=== PATIENT | male | born 1955 | race Hispanic/Latino ===

== ENCOUNTER → 2018-08-29 | Outpatient (CLI) | payer BC | END | disposition home or self-care (01) | LOC: RAH 10:00 | PROVIDERS: ATTEND Internal Medicine Pulmonary Disease | DX: I37.1 Nonrheumatic pulmonary valve insufficiency (principal); I31.3 Pericardial effusion (noninflammatory); I51.7 Cardiomegaly | CPT/HCPCS: 93306 ==

== ENCOUNTER → 2024-07-11 | Outpatient (CLI) | payer MEDICARE ==
[~2024-07-11] MED LIST: PERFLUTREN PROTEIN-A MICROSPHR 0.22 MG/ML VIAL IV ONE
--- NOTE | 2024-07-12 00:01 | HMCSR ---
APPROVED REPORT EXAM: Two-dimensional and M-mode echocardiogram with contrast , Doppler and color Doppler INDICATION ICD: I27.20, I27.81, I10, R06.02, J96.12 Contrast Details Indication: Endocardial border delineation Agent/Amount Used: Optison 1mL 2D Dimensions RVDd4.9 cmLVEF(%)60.3 (>50%)LVEF(%, simp.)61 % IVSd1.2 (0.7-1.1cm)FS(%)32 %LA ESV INDEX (BP)35.44 mL/m2 LVDd4.9 (3.8-5.6cm)LA (2D)5.9 (1.6-4.0cm) PWd1.3 (0.7-1.1cm)Ao Root(2D)3.8 (2.0-3.7cm) IVSs1.7 cmLVOT diam2.5 (1.8-2.4cm) LVDs3.3 (2.5-4.0cm) PWs1.5 cm Deformation Strain Apical 4-23.0 % Apical 2-17.0 % Apical 3-19.0 % Global Strain-20.0 % M-Mode Dimensions EPSS1.2 cm LA (MM)5.4 (1.6-4.0cm) Ao Root(MM)3.6 (2.0-3.7cm) Aortic Valve AoV Vmax1.4 m/Peggy Peak GR7.8 mmHgLVOT Vmax1.3 m/s AoV VTI0.2 mAo Mean GR3.3 mmHgLVOT VTI0.24 m PITA (VMAX)5.5 cm2AVA (VTI) 5.5 cm2 Mitral Valve MV E Vmax69.1 cm/sDECEL Qkth568 ms MV A Vmax71.0 cm/sP 1/2 T63 ms E/A ratio1.0MVA (PHT)3.5 cm2 TDI E/E' Medial8.6E/E' Lateral6.9 Medial E' Peak V8.00 cm/sLateral E' Peak V10.00 cm/s Pulmonary Valve PV Vmax1.0 m/s Tricuspid Valve TR Vmax2.4 m/sRAP (EST) 8 nkOxFNLU49.6 mmHg TR Peak GR23.6 mmHg Left Ventricle The left ventricle is normal size. No regional wall motion abnormalities noted. Moderate concentric l eft ventricular hypertrophy. Left ventricular systolic function is normal, estimated LVEF is 60 to 65 %. Stage I diastolic dysfunction. Right Ventricle The right ventricle is dilated. The right ventricular systolic function is normal. Atria The left atrium is mildly dilated, 38 mL/m. The right atrium is dilated. Aortic Valve Aortic valve is trileaflet. Trace aortic regurgitation. There is no aortic valvular stenosis. Mitral Valve The mitral valve is normal in structure. The leaflets are mildly thickened Trace mitral regurgitation . There is no mitral valve stenosis. Tricuspid Valve The tricuspid valve is normal in structure. Trace tricuspid regurgitation. RVSP is 24 mmHg. Pulmonic Valve Pulmonic valve is not well visualized. Great Vessels The aortic root is normal in size. The IVC is normal in size and collapses >50% with inspiration. Pericardium There is no pericardial effusion. Other Information Quality : Technically difficult challenging study. Conclusion The left atrium is mildly dilated, 38 mL/m. The right atrium is dilated. The right ventricle is di lated. Moderate concentric left ventricular hypertrophy. No regional wall motion abnormalities noted. Left ventricular systolic function is normal, estimated LVEF is 60 to 65%. Stage I diastolic dysfunction. Trace aortic regurgitation. Trace mitral regurgitation. Trace tricuspid regurgitation. PASP is 27 mmHg. There is no pericardial effusion.
== END | disposition home or self-care (01) ==
LOC: RAH 13:20
PROVIDERS: ATTEND Internal Medicine
DX: I34.0 Nonrheumatic mitral (valve) insufficiency (principal); I27.20 Pulmonary hypertension, unspecified; I27.81 Cor pulmonale (chronic); J96.12 Chronic respiratory failure with hypercapnia; I11.9 Hypertensive heart disease without heart failure
CPT/HCPCS: 93356; C8929; Q9956